=== PATIENT | male | born 1980 | race Caucasian/White ===

== ENCOUNTER 2017-03-25 10:40 | Emergency (ER) | payer OTHER ==
[2017-03-25 10:47] VITALS: BP 143/73; PULSE 71; TEMP 98.2; BMI 25.7
[2017-03-25] MEDS ORDERED: IBUPROFEN 600 MG TABLET (FP) PO ONE ×2 (11:54→11:56)
--- NOTE | 2017-03-25 12:18 | PDOC ---
History of Present Illness - General Chief Complaint: Injury Stated Complaint: ypd / INJURY Time Seen by Provider: 03/25/17 11:54 History Source: Patient Exam Limitations: No Limitations - History of Present Illness Initial Comments: 03/25/17 12:[address] [place] [address] dropped a box of evidence of his left foot at work today. Pt has pain to the great toe. 03/25/17 19:11 Past History - Past Medical History Allergies/Adverse Reactions: Allergies Allergy/AdvReac Type Severity Reaction Status Date / Time No Known Allergies Allergy Verified 03/25/17 10:44 Home Medications: Ambulatory Orders NK [No Known Home Medication] 02/20/16 Other medical history: none - Immunization History Td Vaccination: Yes Immunization Up to Date: Yes (may need 3rd HepB ) - Psycho/Social/Smoking Cessation Hx Anxiety: No Suicidal Ideation: No Smoking Status: No Smoking History: Never smoked Years of Tobacco Use: 0 Have you smoked in the past 12 months: No Number of Cigarettes Smoked Daily: 0 Cigars Per Day: 0 Information on smoking cessation initiated: No Hx Alcohol Use: No Drug/Substance Use Hx: No Substance Use Type: Alcohol *Physical Exam - Vital Signs Last Vital Signs Temp Pulse Resp BP Pulse Ox 98.2 F 71 16 143/73 100 03/25/17 10:45 03/25/17 10:45 03/25/17 10:45 03/25/17 10:45 03/25/17 10:45 - Physical Exam General Appearance: Yes: Nourished, Appropriately Dressed HEENT: positive: EOMI, JON Extremity: positive: Normal Capillary Refill, Tender (left great toe at the base , with mild echymosis , nv intact , decreased great toe extension , positive flexion) Integumentary: positive: Normal Color, Dry, Warm Neurologic: positive: Fully Oriented, Alert, Normal Mood/Affect, Normal Response , Motor Strength 5/5 ED Treatment Course - RADIOLOGY Radiology Studies Ordered: Category Date Time Status FOOT-LEFT [RAD] Stat Radiology 03/25/17 11:54 Completed - Medications Given in the ED: ED Medications Discontinued Medications Generic Name Dose Route Start Last Admin Trade Name Freq PRN Reason Stop Dose Admin Ibuprofen 600 mg 03/25/17 11:54 03/25/17 11:58 Motrin - PO 03/25/17 11:55 600 mg ONCE ONE Administration Progress Note - Progress Note Progress Note: pt aware of the xray results, pt is to ice elevate and take NSAIDS follow up as discussed to be cleared by [facility] Medical Decision Making - Medical Decision Making 03/25/17 19:12 cc: left great toe injury after dropping heavy box on foot at work today pt is able to walk will give motrin for pain xray to r/o fracture *DC/Admit/Observation/Transfer Diagnosis at time of Disposition: Contusion of foot, left Qualifiers: Encounter type: initial encounter Qualified Code(s): S90.32XA - Contusion of left foot, initial encounter - Discharge Dispostion Disposition: HOME Condition at time of disposition: Good - Referrals Referrals: Jonathon Scott MD [Staff Physician] - - Patient Instructions Printed Discharge Instructions: Contusion Additional Instructions: apply ice every 2hrs for 20 minutes to are of pain for the next 2 days while awake take ibuprofen 600-800mg every 6hrs for pain follow with a clipper machine or orthopedist in your area or with here in [place] for follow up within one week if pain continues or worsens - Post Discharge Activity Work/School Note: Back to Work
== END 2017-03-25 12:21 | disposition home or self-care (01) ==
LOC: JERFT 10:40
DX: S90.32XA Contusion of left foot, initial encounter (principal); W22.8XXA Striking against or struck by other objects, initial encounter; Y93.89 Activity, other specified; Y92.248 Other public administrative building as the place of occurrence of the external cause; Y99.0 Civilian activity done for income or pay
CPT/HCPCS: 73630-TC-LT; 99281-25

== ENCOUNTER 2023-12-04 09:31 | Emergency (ER) | payer OTHER ==
[2023-12-04 09:42] VITALS: BP 150/104; PULSE 74; RESP 18; TEMP 98.4; BMI 29.9
== END 2023-12-04 11:07 | disposition home or self-care (01) ==
LOC: FER 09:31
DX: M25.522 Pain in left elbow (principal)
CPT/HCPCS: 73070-TC-LT-FY; 99283-25